=== PATIENT | female | born 1980 | race Caucasian/White ===

== ENCOUNTER 2022-07-31 03:34 | Emergency (ER) | payer BC, OTHER ==
[2022-07-31 03:48] LABS: BASOPHILS ABSOLUTE AUTO 0.03 K/mm3 (0.01-0.08); BASOPHILS PERCENT AUTO 0.3 % (0.1-1.2); EOSINOPHILS ABSOLUTE AUTO 0.02 K/mm3 (0.04-0.36); EOSINOPHILS PERCENT AUTO 0.2 (0.7-5.8); HEMATOCRIT 41.5 % (34.1-44.9); HEMOGLOBIN 14.2 gm/dl (11.2-15.7); IMMATURE GRAN ABSOLUTE AUTO 0.05 K/mm3 (0.00-0.10); IMMATURE GRAN PERCENT AUTO 0.5 % (<=1.0); LYMPHOCYTES ABSOLUTE AUTO 1.73 K/mm3 (1.18-3.74); LYMPHOCYTES PERCENT AUTO 15.9 % (19.3-51.7); MEAN CORPUSCULAR HEMOGLOBIN 33.2 pg (25.6-32.2); MEAN CORPUSCULAR HGB CONC 34.2 g/dl (32.2-35.5); MEAN PLATELET VOLUME 9.5 fl (9.4-12.3); MONOCYTES ABSOLUTE AUTO 0.67 K/mm3 (0.24-0.36); MONOCYTES PERCENT AUTO 6.2 % (4.7-12.5); NEUTROPHILS ABSOLUTE AUTO 8.35 K/mm3 (1.56-6.13); NEUTROPHILS PERCENT AUTO 76.9 % (34.0-71.1); PLATELET COUNT,PLT 335 K/mm3 (182-369); RED BLOOD CELL COUNT 4.28 M/mm3 (3.98-5.22); WHITE BLOOD CELL COUNT,WBC 10.85 K/mm3 (3.98-10.04)
[2022-07-31] MEDS ORDERED: Ondansetron 4 MG/2 ML SDV IVPUSH ONE ×2 (03:49→06:34)
[2022-07-31] MEDS ORDERED: Morphine 4 MG/ML Syringe IVPUSH ONE ×2 (03:49→05:14)
[2022-07-31 04:06] LABS: A/G RATIO 1.2 (1-2); ALBUMIN 4.2 g/dl (3.4-5.0); BILIRUBIN TOTAL 0.4 mg/dL (0.2-1.0); BUN/CREATININE RATIO 10.9 (14-18); CALCIUM 8.4 mg/dL (8.5-10.1); CREATININE 1.1 mg/dL (0.55-1.02); EST CRCL DRUG DOSING (CG) 60.56 mL/min; ETHANOL BLOOD MEDICAL 0.2 gm% (0.00); PROTEIN TOTAL,TP 7.6 g/dl (6.4-8.2)
[2022-07-31] MEDS ORDERED: HYDROmorphone 0.5 MG/0.5 ML Syringe IVPUSH ONE (06:34)
== END 2022-07-31 07:00 ==
LOC: JD.ED 03:34
DX: S12.601A Unspecified nondisplaced fracture of seventh cervical vertebra, initial encounter for closed fracture (principal); S22.049A Unspecified fracture of fourth thoracic vertebra, initial encounter for closed fracture; V86.55XA Driver of 3- or 4- wheeled all-terrain vehicle (ATV) injured in nontraffic accident, initial encounter; Y92.410 Unspecified street and highway as the place of occurrence of the external cause
CPT/HCPCS: 36415; 70450; 71260; 72125; 74177; 80053; 80307; 85025; 96374; 96375; 96376; 99285; J1170; J2270; J2405